=== PATIENT | female | born 1975 | race Caucasian/White ===

== ENCOUNTER 2016-10-04 23:10 | Inpatient (IN) | payer OTHER ==
[~2016-10-04] VITALS: Ht 160 cm; Wt 98.8 kg
[2016-10-04 23:16] VITALS: BP 139/79; PULSE 89; RESP 16; TEMP 98.6; O2SAT 100
[2016-10-04] MEDS ORDERED: NALOXONE HCL 0.4 MG/ML AMP IV PUSH ONE (23:30)
[2016-10-04] MEDS ORDERED: SODIUM CHLOR 0.9% 1000 ML INJ 1,000 ML IV ONE (23:30)
--- NOTE | 2016-10-04 23:39 | PD ---
HPI Chief Complaint: Psychiatric Symptoms Time Seen by Provider: 23:17 Travel History International Travel<30 days: No Contact w/Intl Traveler<30days: No Traveled to known affect area: No [facility] Past Medical History ?: Unknown Allergies-Medications (Allergen,Severity, Reaction): Coded Allergies: No Known Allergies (Unverified , 10/04/16) Data Data Last Documented VS Vital Signs Date Time Temp Pulse Resp B/P Pulse Ox O2 Delivery O2 Flow Rate FiO2 10/05/16 00:13 100 Nasal Cannula 2 10/04/16 23:16 98.6 89 16 139/79 Orders Complete Blood Count With Diff (10/04/16 23:22) Comprehensive Metabolic Panel (10/04/16 23:22) Tylenol (Acetaminophen) (10/04/16 23:22) Salicylates (Aspirin) (10/04/16 23:22) Electrocardiogram (10/04/16 ) Alcohol (Ethanol) (10/04/16 23:22) Drug Screen, Random Urine (10/04/16 23:22) Electrocardiogram (10/04/16 ) Urinalysis - C+S If Indicated (10/04/16 23:22) Oxygen Administration (10/04/16 23:24) Sodium Chlor 0.9% 1000 Ml Inj (Ns 1000 M (10/04/16 23:30) Naloxone Inj (Narcan Inj) (10/04/16 23:30) Ed Urine Pregnancytest Poc (10/04/16 23:26) Arterial Blood Gas (Abg) (10/04/16 ) Thyroid Stimulating Hormone (10/04/16 23:15) Psych Screen (10/05/16 01:50) Labs Laboratory Tests Test 10/04/16 10/04/16 10/04/16 23:15 23:40 23:45 White Blood Count 8.7 TH/MM3 Red Blood Count 4.43 MIL/MM3 Hemoglobin 10.2 GM/DL Hematocrit 33.2 % Mean Corpuscular Volume 74.9 FL Mean Corpuscular Hemoglobin 23.1 PG Mean Corpuscular Hemoglobin 30.9 % Concent Red Cell Distribution Width 16.4 % Platelet Count 345 TH/MM3 Mean Platelet Volume 8.2 FL Neutrophils (%) (Auto) 54.0 % Lymphocytes (%) (Auto) 34.9 % Monocytes (%) (Auto) 6.0 % Eosinophils (%) (Auto) 4.0 % Basophils (%) (Auto) 1.1 % Neutrophils # (Auto) 4.7 TH/MM3 Lymphocytes # (Auto) 3.0 TH/MM3 Monocytes # (Auto) 0.5 TH/MM3 Eosinophils # (Auto) 0.3 TH/MM3 Basophils # (Auto) 0.1 TH/MM3 CBC Comment DIFF FINAL Differential Comment Sodium Level 140 MEQ/L Potassium Level 3.8 MEQ/L Chloride Level 106 MEQ/L Carbon Dioxide Level 26.1 MEQ/L Anion Gap 8 MEQ/L Blood Urea Nitrogen 6 MG/DL Creatinine 0.71 MG/DL Estimat Glomerular Filtration 90 ML/MIN Rate Random Glucose 97 MG/DL Calcium Level 8.8 MG/DL Total Bilirubin 0.1 MG/DL Aspartate Amino Transf 20 U/L (AST/SGOT) Alanine Aminotransferase 34 U/L (ALT/SGPT) Alkaline Phosphatase 67 U/L Total Protein 7.3 GM/DL Albumin 3.5 GM/DL Thyroid Stimulating Hormone 3.150 uIU/ML 3rd Gen Salicylates Level LESS THAN 1.7 MG/DL Acetaminophen Level LESS THAN 2.0 MCG/ML Ethyl Alcohol Level 278 MG/DL Blood Gas Puncture Site RT FOOT Blood Gas Patient Temperature 98.6 Blood Gas HCO3 22 mmol/L Blood Gas Base Excess -2.9 mmol/L Blood Gas Oxygen Saturation 98 % Arterial Blood pH 7.32 Arterial Blood Partial 45 mmHg Pressure CO2 Arterial Blood Partial 318 mmHG Pressure O2 Arterial Blood Oxygen Content 14.7 Vol % Arterial Blood 1.5 % Carboxyhemoglobin Arterial Blood Methemoglobin 0.5 % Blood Gas Hemoglobin 10.1 G/DL Oxygen Delivery Device NONREB MASK Blood Gas Liter Flow 15 L/M Urine Color LIGHT-YELLOW Urine Turbidity CLEAR Urine pH 5.5 Urine Specific [place] 1.003 Urine Protein NEG mg/dL Urine Glucose (UA) NEG mg/dL Urine Ketones NEG mg/dL Urine Occult Blood NEG Urine Nitrite NEG Urine Bilirubin NEG Urine Urobilinogen LESS THAN 2.0 MG/DL Urine Leukocyte Esterase NEG Urine WBC LESS THAN 1 /hpf Urine Squamous Epithelial <1 /hpf Cells Urine Amorphous Sediment RARE Microscopic Urinalysis Comment CATH-CULT NOT IND Urine Opiates Screen NEG Urine Barbiturates Screen NEG Urine Amphetamines Screen NEG Urine Benzodiazepines Screen POS Urine Cocaine Screen NEG Urine Cannabinoids Screen NEG [facility] Medical Decision Making Interpretation(s) EKG , sinus rhythm LVH and nonspecific ST segment changes ABG shows pH 7.315 CO2 45.0-318 bicarbonate 22.3 Jan Nathan MD Oct 04, 2016 23:39
[2016-10-04 23:49] LABS: AUTOMATED NEUTROPHIL # 4.7 TH/MM3 (1.8-7.7); BASOPHIL # 0.1 TH/MM3 (0-0.2); BASOPHIL % 1.1 % (0.0-2.0); EOSINOPHIL # 0.3 TH/MM3 (0-0.4); HEMATOCRIT 33.2 % (35.0-46.0); HEMO FLAGS DIFF FINAL; LYMPH % 34.9 % (9.0-44.0); MEAN CELL VOLUME 74.9 FL (80.0-100.0); MEAN CORPUSCULAR HEMOGLOBIN 23.1 PG (27.0-34.0); MEAN CORPUSCULAR HGB CONC 30.9 % (32.0-36.0); PLATELET COUNT 345 TH/MM3 (150-450); RED BLOOD COUNT 4.43 MIL/MM3 (4.00-5.30); RED CELL DISTRIBUTION WIDTH 16.4 % (11.6-17.2); WHITE BLOOD COUNT 8.7 TH/MM3 (4.0-11.0)
[2016-10-04 23:58] LABS: ACETAMINOPHEN LESS THAN 2.0 MCG/ML (10.0-30.0); ALT (GPT) 34 U/L (10-53); ANION GAP 8 MEQ/L (5-15); AST (GOT) 20 U/L (15-37); BICARBONATE 26.1 MEQ/L (21.0-32.0); BLOOD UREA NITROGEN 6 MG/DL (7-18); CHLORIDE 106 MEQ/L (98-107); GLOMERULAR FILTRATION RATE 90 ML/MIN (>89); POTASSIUM 3.8 MEQ/L (3.5-5.1); SODIUM (NA) 140 MEQ/L (136-145)
[2016-10-05 00:07] LABS: ALKALINE PHOSPHATASE 67 U/L (45-117); TOTAL BILIRUBIN ADULT 0.1 MG/DL (0.2-1.0)
[2016-10-05 00:16] LABS: BLOOD, URINE NEG (NEG); GLUCOSE,URINE NEG (NEG); KETONE, URINE NEG (NEG); NITRITE,URINE NEG (NEG); PH, URINE 5.5 (5.0-8.5); SQUAMOUS EPITHELIAL CELL URINE <1 /hpf (0-5); URINE COLOR LIGHT-YELLOW (YELLW/STRAW)
[2016-10-05 00:17] LABS: COMMENT (UR) CATH-CULT NOT IND; CULTURE IF INDICATED CATH CULTURE NOT IND
[2016-10-05 00:19] LABS: AMPHETAMINE, URINE NEG (NEG); BARBITURATES, URINE NEG (NEG); COCAINE, URINE NEG (NEG)
[2016-10-05 00:20] LABS: BLOOD GAS BASE EXCESS -2.9 mmol/L (-2-2); BLOOD GAS CARBOXYHEMOGLOBIN 1.5 % (0-4); BLOOD GAS HCO3 22 mmol/L (22-26); BLOOD GAS METHEMOGLOBIN 0.5 % (0-2); BLOOD GAS O2 HGB SATURATION 98 % (90-100); BLOOD GAS OXYGEN CONTENT 14.7 Vol % (12.0-20.0); BLOOD GAS PCO2 45 mmHg (38-42); BLOOD GAS PO2 318 mmHG (61-120); BLOOD GAS TOTAL HGB 10.1 G/DL (12.0-16.0); TEMP CORR TO 98.6
[2016-10-05 00:21] LABS: CRITICAL VALUE NO; DRAW SITE RT FOOT; LITER FLOW 15 L/M; NUMBER OF ARTERIAL PUNCTURES 1; OXYGEN DEVICE NONREB MASK; STAT YES
[2016-10-05 05:52] VITALS: BP 121/68; PULSE 87; RESP 14; O2SAT 100
[2016-10-05 07:48] VITALS: BP 114/66; PULSE 87; RESP 20; O2SAT 97
[2016-10-05] MEDS ORDERED: ALBU6.7H INH (08:26)
[2016-10-05] MEDS ORDERED: ALPR.5 PO (08:26)
[2016-10-05] MEDS ORDERED: LIBRIUM PO (08:27)
--- NOTE | 2016-10-05 09:16 | EKG ---
Date Performed: 10/04/2016 Time Performed: 23:32:55 PTAGE: 41 years EKG: Sinus rhythm NORMAL ECG PREVIOUS TRACING : 10/04/2016 23.29 DOCTOR: Alton Salomon Interpretating Date/Time 10/05/2016 09:15:21
[2016-10-05 11:26] VITALS: BP 115/66; PULSE 94; RESP 18; O2SAT 96
[2016-10-05 14:08] VITALS: BP 96/51; PULSE 99; RESP 18; O2SAT 97
[2016-10-05 18:10] VITALS: BP 135/65; PULSE 95; RESP 18; O2SAT 96
--- NOTE | 2016-10-05 19:17 | PD ---
History of Present Illness Chief Complaint: Psychiatric Symptoms Time Seen by Provider: 18:30 Travel History International Travel<30 Days: No (unable to obtain ) Contact w/Intl Traveler<30days: No (unable to obtain ) Known affected area: No (unable to obtain ) Legal Status Legal Status: Vaughan Act Vaughan Act Signed By: Karli Vaughan Act Comment: OFFICER OJ MANCERA # [id number] History of Present Illness: HPI 41 year old female with history of anxiety disorder who presents under a BA after she sent messages to her daughter via text that she had taken # 90 Xanax and drank a bottle of wine. The messages were saying goodbye. She also stated that she was tired of living and didn't want to wake up". The patient was monitored in main Ed and then later in J pod. She slept most of the afternoon. Telephone call to her mother Estrella at [phone] with the patient 's verbal consent. Mother reports that Leela quit her job in [place] moved here a few weeks ago. She was having trouble with her adult children as well as having trouble with someone at work. Since she has been here she has been drinking most every day and has been stating that she does not want to live anymore . She has also been crying most days. The patient is seen in J pod. She is alert She is clinically sober. Angry affect. States " I want to go home". She is guarded with the information she presents and states " I had a bad night. A lot of things happening with my children". I was thinking my children would be better off without me". She is minimizing her overdose as well as minimizing her use of alcohol. She is not amenable to receiving treatment at this time. her BAL on admit was 278 and positive toxicology for benzos. PFSH Past Medical History ?: Unknown Psychiatric History Psychiatric History Hx Psychiatric Treatment: Has been treated in the past with Lexapro as well as Xanax History of Inpatient Treatment: No Guns or firearms in home: No Social History , unemployed female. Lives with her mother. Moved to [facility] a few weeks ago. Has 3 adult children Hx Alcohol Use: Yes (Minimizes) Hx Tobacco Use: No Hx Substance Use: Yes Substance Use Type: Alcohol, Benzos (Valium,Xanax) Hx of Substance Use Treatment: No Family Psychiatric History Daughter has attempted sucide x 2 Son has attempted suicide x 1. Allergies-Medications (Allergen,Severity, Reaction): Coded Allergies: No Known Allergies (Unverified , 10/04/16) Reported Meds & Prescriptions Reported Meds & Active Scripts Active Reported [Librium] Unknown Dose PO DAILY Proventil Hfa 6.7 GM Inh (Albuterol Sulfate) 90 Mcg/Act Aer 1 Puff INH Q4H PRN Xanax (Alprazolam) 0.5 Mg Tab 0.5 Mg PO TID PRN Review of Systems Except as stated in HPI: all other systems reviewed are Neg Exam Alert: Yes [place]: Person (ox4) Mood: Angry, Depressed Affect: Restricted Speech: Clear, Logical (does not initiate) Eye Contact: Normal Memory Intact: Comment (no impairmetn) Hallucinations: Other (negative) Delusions: No Suicidal: Intent (Does not contract for safety. ) Homicidal: Ideation (negative) Insight/Judgement Poor. Poor MDM Medical Decision Making Medical Record Reviewed: Yes Assessment/Plan 41 year old female under a BA after she took # 90 Xanax of 0.5 mg as well as took a bottle of wine. She had sent messages via text to her daughter telling her she did not want to live anymore. It is reported that the patient has ez crying as well as verbalizing to others that she does not want to live anymore. She has also been drinking on a daily basis. At this time the patient will remain on BA. for further observation, to maintain safety and to initiate treatment. She will be placed on CIIL protocol as a a cautionary since she has been drinking every day. Orders Complete Blood Count With Diff (10/04/16 23:22) Comprehensive Metabolic Panel (10/04/16 23:22) Tylenol (Acetaminophen) (10/04/16 23:22) Salicylates (Aspirin) (10/04/16 23:22) Alcohol (Ethanol) (10/04/16 23:22) Drug Screen, Random Urine (10/04/16 23:22) Electrocardiogram (10/04/16 ) Urinalysis - C+S If Indicated (10/04/16 23:22) Oxygen Administration (10/04/16 23:24) Sodium Chlor 0.9% 1000 Ml Inj (Ns 1000 M (10/04/16 23:30) Naloxone Inj (Narcan Inj) (10/04/16 23:30) Ed Urine Pregnancytest Poc (10/04/16 23:26) Arterial Blood Gas (Abg) (10/04/16 ) Thyroid Stimulating Hormone (10/04/16 23:15) Psych Screen (10/05/16 01:50) Diet Regular Basic (10/05/16 Lunch) Diet Regular Basic (10/05/16 Dinner) Results Vital Signs Date Time Temp Pulse Resp B/P Pulse Ox O2 Delivery O2 Flow Rate FiO2 10/05/16 18:10 95 18 135/65 96 Room Air 10/05/16 14:08 99 18 96/51 97 Room Air 10/05/16 11:26 94 18 115/66 96 Room Air 10/05/16 07:48 87 20 114/66 97 Room Air 10/05/16 05:52 87 14 121/68 100 Room Air 10/05/16 00:13 100 Nasal Cannula 2 10/04/16 23:16 98.6 89 16 139/79 100 Laboratory Tests Test 10/04/16 10/04/16 10/04/16 23:15 23:40 23:45 White Blood Count 8.7 Red Blood Count 4.43 Hemoglobin 10.2 Hematocrit 33.2 Mean Corpuscular Volume 74.9 Mean Corpuscular Hemoglobin 23.1 Mean Corpuscular Hemoglobin 30.9 Concent Red Cell Distribution Width 16.4 Platelet Count 345 Mean Platelet Volume 8.2 Neutrophils (%) (Auto) 54.0 Lymphocytes (%) (Auto) 34.9 Monocytes (%) (Auto) 6.0 Eosinophils (%) (Auto) 4.0 Basophils (%) (Auto) 1.1 Neutrophils # (Auto) 4.7 Lymphocytes # (Auto) 3.0 Monocytes # (Auto) 0.5 Eosinophils # (Auto) 0.3 Basophils # (Auto) 0.1 CBC Comment DIFF FINAL Differential Comment Sodium Level 140 Potassium Level 3.8 Chloride Level 106 Carbon Dioxide Level 26.1 Anion Gap 8 Blood Urea Nitrogen 6 Creatinine 0.71 Estimat Glomerular Filtration 90 Rate Random Glucose 97 Calcium Level 8.8 Total Bilirubin 0.1 Aspartate Amino Transf 20 (AST/SGOT) Alanine Aminotransferase 34 (ALT/SGPT) Alkaline Phosphatase 67 Total Protein 7.3 Albumin 3.5 Thyroid Stimulating Hormone 3.150 3rd Gen Salicylates Level LESS THAN 1.7 Acetaminophen Level LESS THAN 2.0 Ethyl Alcohol Level 278 Blood Gas Puncture Site RT FOOT Blood Gas Patient Temperature 98.6 Blood Gas HCO3 22 Blood Gas Base Excess -2.9 Blood Gas Oxygen Saturation 98 Arterial Blood pH 7.32 Arterial Blood Partial 45 Pressure CO2 Arterial Blood Partial 318 Pressure O2 Arterial Blood Oxygen Content 14.7 Arterial Blood 1.5 Carboxyhemoglobin Arterial Blood Methemoglobin 0.5 Blood Gas Hemoglobin 10.1 Oxygen Delivery Device NONREB MASK Blood Gas Liter Flow 15 Urine Color LIGHT-YELLOW Urine Turbidity CLEAR Urine pH 5.5 Urine Specific [place] 1.003 Urine Protein NEG Urine Glucose (UA) NEG Urine Ketones NEG Urine Occult Blood NEG Urine Nitrite NEG Urine Bilirubin NEG Urine Urobilinogen LESS THAN 2.0 Urine Leukocyte Esterase NEG Urine WBC LESS THAN 1 Urine Squamous Epithelial <1 Cells Urine Amorphous Sediment RARE Microscopic Urinalysis Comment CATH-CULT NOT IND Urine Opiates Screen NEG Urine Barbiturates Screen NEG Urine Amphetamines Screen NEG Urine Benzodiazepines Screen POS Urine Cocaine Screen NEG Urine Cannabinoids Screen NEG Diagnosis Primary Impression: Substance induced mood disorder Additional Impression: Adjustment disorder Admitting Information Admitting Physician Requests: Admit Problem Qualifiers Additional Impression: Adjustment disorder Qualified Code: F43.23 - Adjustment disorder with mixed anxiety and depressed mood Amy Seals [facility] Oct 05, 2016 19:17
[2016-10-05] MEDS ORDERED: ALUMINUM/MAGNESIUM/SIMETH 30 ML CUP PO PRN (19:30)
[2016-10-05] MEDS ORDERED: ACETAMINOPHEN 325 MG TAB PO PRN (19:30)
[2016-10-05] MEDS ORDERED: MAGNESIUM HYDROXIDE SUSP 30 ML CUP PO PRN (19:30)
[2016-10-05 21:30] VITALS: BP 127/100; PULSE 89; RESP 18; TEMP 97.7; O2SAT 98
[2016-10-06] MEDS ORDERED: LORazepam 2 MG/ML VIAL IV PUSH PRN ×4
[2016-10-06] MEDS ORDERED: FLUMAZENIL 0.5 MG/5 ML VIAL IV PUSH PRN
[2016-10-06] MEDS ORDERED: LORazepam 2 MG TAB PO PRN
[2016-10-06] MEDS ORDERED: LORazepam 1 MG TAB PO PRN
[2016-10-06 05:47] VITALS: BP 94/54; PULSE 72; RESP 18; TEMP 98
[2016-10-06 09:36] LABS: ANION GAP 7 MEQ/L (5-15); BICARBONATE 26.9 MEQ/L (21.0-32.0); BLOOD UREA NITROGEN 10 MG/DL (7-18); CHLORIDE 104 MEQ/L (98-107); GLOMERULAR FILTRATION RATE 83 ML/MIN (>89); POTASSIUM 3.8 MEQ/L (3.5-5.1); SODIUM (NA) 138 MEQ/L (136-145)
[2016-10-06 09:39] LABS: LDL CHOLESTEROL 81 MG/DL (0-99)
[2016-10-06 11:37] LABS: HEMOGLOBIN A1a 1.2 %; HEMOGLOBIN A1b 1.6 %; HEMOGLOBIN LA1C 1.9 %; HEMOGLOBIN P3 3.2 %
--- NOTE | 2016-10-06 11:44 | HHI.HP ---
Provisional Diagnosis Admission Date Oct 05, 2016 at 19:26 Ramsay I. 1. Adjustment disorder with disturbance of emotions and conduct 2. Alcohol dependence Rule out benzodiazepine use issues. Ramsay II. Deferred Ramsay V. GAF is 45 presently, decreased chiefly secondary to substance use Certification of Person's Competence To Provide Express and Informed Consent I have personally examined Leela Mcghee , a person being served at [facility] on, Oct 06, 2016 11:44. Express and informed consent means consent voluntarily given in writing, by a competent person, after sufficient explanation and disclosure of the subject matter involved to enable the person to make a knowing and willful decision without any element of force, fraud, deceit, duress, or other form of constraint or coercion. This person is 18 years of age or older, is not now known to be incompetent to consent to treatment with a guardian advocate, and does not have a health care surrogate or proxy currently making medical treatment decisions. I have found this person to be one of the following: [] Competent to provide express and informed consent, as defined above, for voluntary admission to this facility and is competent to provide express and informed consent for treatment. He/she has the consistent capacity to make well reasoned, willful, and knowing decisions concerning his or her medical or mental health treatment. The person fully and consistently understands the purpose of the admission for examination/placement and is fully capable of personally exercising all rights assured [place] [] Incompetent to provide express and informed consent to voluntary admission, and this is incompetent to provide express and informed consent to treatment. The person must be transferred to involuntary status and a petition for a guardian advocate filed with the Circuit Court. [x] Refusing to provide express and informed consent to voluntary admission but is competent to provide express and informed consent for treatment. The person must be discharged or transferred to involuntary status. Form shall be completed within 24 hours of a person's arrival at the receiving facility and filed in the clinical record of each person: 1. Admitted on a voluntary basis 2. Permitted to provide express and informed consent to his/her own treatment 3. Allowed to transfer from involuntary to voluntary status 4. Prior to permitting a person to consent to his or her own treatment after having been previously found incompetent to consent to treatment. History of Present Illness Capacity: Has Capacity HPI Ms. Mcghee is a 41-year-old female presently admitted under a Vaughan act following a benzodiazepine overdose in the setting of alcohol. Patient was evaluated by the psychiatric nurse practitioner in the ED who recommended admission to the inpatient psychiatric unit. Nurse practitioner obtained collateral from the patient's mother to the effect that the patient has been drinking heavily. Reviewing our electronic medical record, it appears this is the patient's first visit to [place]. Patient seen and examined with counselor and nurse. Chart reviewed. Case discussed with nursing staff. RN reports that patient's mother has called the unit, reiterating that the patient is a problem drinker. On my examination today, patient presents as somewhat oppositional and minimally cooperative. She insists that her presenting overdose occurred "because I had too much to drink and that's all." She maintains that she does not recall actually making the overdose, nor does she recall any of her associated behavior. She minimizes the extent of her substance use and says that she was drinking heavily only because it was the 04 of October. She denies any suicidal ideation now, saying that she wants to live for her mother and grandchildren. She denies any issues with low mood or elevated mood. She denies ever having experienced hallucinations. I can elicit no delusional material. The remainder of the psychiatric ROS is negative. Past psychiatric history: Patient admits only to a history of anxiety and says that the Xanax was prescribed for this indication by a psychiatrist in [place]. She has no psychiatric care in our area. She denies a history of psychiatric admissions or previous suicide attempts. Family history: The patient denies any family history of serious mental illness , substance use disorder or suicide. Chemical dependency history: The patient insists that she only drinks 2 glasses of wine a few times a week. She denies a history of blackouts. Denies any history of DUIs or other consequences from her drinking. No reported history of DTs or seizures. She denies any other substance use. In particular, she denies abusing her prescribed benzodiazepines. Her alcohol level on presentation here was 278 and her toxicology was positive for benzodiazepines. Social history: Patient reports that she came to [place] to care for her mother. 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 She has 3 children. She denies any or legal history. She denies any access to guns or firearms. No roman catholic or spiritual beliefs. Review of Systems ROS Limitations: Uncooperative Except as stated in HPI: all other systems reviewed are Neg Past Psych History Psychological trauma history Denies any history of abuse or other trauma. Violence risk - others (6 mos) Lower imminent risk, except as an unintentional consequence of substance use. No homicidal ideation. No known history of violence. Violence risk - self (6 mos) Likely a significant component of chronic risk related to substance use. She maintains that she does not recall her presenting ingestion and denies suicidal ideation now. She denies a history of suicide attempts in the past. Substance Abuse History Drugs/Alcohol past 12 months See above Past Family Social History Coded Allergies: No Known Allergies (Unverified , 10/04/16) Past Medical History Includes a history of asthma for which she uses an inhaler as needed. Reported Medications Albuterol 6.7 GM Inh (Proventil Hfa 6.7 GM Inh)90 Mcg/Act Aer1 Puff INH Q4H PRN (SHORTNESS OF BREATH) #1 INHALER Ref 0 10/05/16 Alprazolam (Xanax)0.5 Mg Tab0.5 Mg PO TID PRN (ANXIETY) Ref 0 10/05/16 Discontinued Reported Medications [Librium] No Conflict CheckUnknown Dose PO DAILY 10/05/16 Current Medications Medications (Trade) Dose Ordered Sig/Johnna Route Start Time Stop Time Status Last Admin (Tylenol) 650 mg Q4H PRN PO 10/05/16 19:30 (Milk Of Magnesia Liq) 30 ml DAILY PRN PO 10/05/16 19:30 (Mag-Al Plus Susp Liq) 30 ml Q6H PRN PO 10/05/16 19:30 10/05/16 22:19 (Ativan) 1 mg Q4H PRN PO 10/06/16 00:00 (Ativan Inj) 1 mg Q4H PRN IV PUSH 10/06/16 00:00 (Ativan) 2 mg Q2H PRN PO 10/06/16 00:00 (Ativan Inj) 2 mg Q2H PRN IV PUSH 10/06/16 00:00 (Ativan Inj) 2 mg Q1H PRN IV PUSH 10/06/16 00:00 (Ativan Inj) 2 mg Q15M PRN IV PUSH 10/06/16 00:00 (Romazicon Inj) 0.2 mg Q1M PRN IV PUSH 10/06/16 00:00 Family History See above Social History See above Patient's Strengths (min. 2) In a monitored setting. Verbally fluent. Physical Exam Physical examination completed by ED provider. On my examination today, the patient appears to be in no acute physical distress. No hand tremor, no diaphoresis, no other signs of alcohol withdrawal noted. No other motoric abnormalities noted. Laboratories and vitals signs reviewed: Vital Signs Vital Signs Date Time Temp Pulse Resp B/P Pulse Ox O2 Delivery O2 Flow Rate FiO2 10/06/16 05:47 98.0 72 18 94/54 10/05/16 21:30 98 10/05/16 18:10 Room Air 10/05/16 00:13 2 Lab Results Item Value Date Time White Blood Count 8.7 TH/MM3 10/04/162314 Hemoglobin 10.2 GM/DL L 10/04/162314 Platelet Count 345 TH/MM3 10/04/162314 Sodium Level 138 MEQ/L 10/06/16 0753 Potassium Level 3.8 MEQ/L 10/06/16 0753 Chloride Level 104 MEQ/L 10/06/16 0753 Carbon Dioxide Level 26.9 MEQ/L 10/06/16 075 Blood Urea Nitrogen 10 MG/DL 10/06/16 0753 Creatinine 0.76 MG/DL 10/06/16 075 Hemoglobin A1c 5.5 % 10/06/16 0753 Aspartate Amino Transf (AST/SGOT) 20 U/L 10/04/162314 Alanine Aminotransferase (ALT/SGPT) 34 U/L 10/04/162314 Alkaline Phosphatase 67 U/L 10/04/162314 Thyroid Stimulating Hormone 3rd Gen 3.150 uIU/ML 10/04/162314 Urine Benzodiazepines Screen POS H 10/04/162344 Ethyl Alcohol Level 278 MG/DL H 10/04/162314 ED POC preg neg. Mental Status Examination Patient is in hospital gown. She is somewhat disheveled but maintaining basic hygiene. She is awake and alert and oriented to person and hospital at least. No evidence of delirium. No motor abnormalities noted. Speech is within normal limits for rate, tone and volume. Language and fund of knowledge seem average. Focusing concentration fair. Memory grossly intact on clinical exam. Patient denies issues with mood although affect is somewhat restricted and dysphoric. Thought process linear. No loosening of associations. No evident delusional material. Denies audiovisual hallucinations. Denies suicidal or homicidal ideation. Insight and judgment seem poor. Assessment & Plan Problem List: (1) Adjustment disorder ICD Code: F43.20 (2) Alcohol dependence ICD Code: F10.20 Assessment & Plan This is a 41-year-old female with psychiatric history as detailed above who is presently admitted under a Vaughan act following a benzodiazepine overdose in the setting of alcohol. Patient minimizes the circumstances of her presenting overdose and likewise minimizes the impact of her alcohol use. Mother has spoken with staff on more than one occasion expressing concerns about the patient's pattern of alcohol use. The patient is presently denying the psychiatric ROS and is quite discharge focused. It seems to me that her greatest ongoing risk factor for self-harm is the alcohol use, and so I think it is most prudent at this juncture to place the patient under a physician's certificate for transfer to [facility] for further assessment and management of the chemical dependency issues. Admit inpatient. Initiate physician's certificate for emergency admission to addiction receiving facility. speech pathologist assistant has already called over to [facility]; no beds today. Check CBC, Iron studies in morning given microcytic anemia. Continue CIWA with Ativan for withdrawal. Add thiamine/folate. Seizure/fall precautions. Vitals every shift. Counselor to see. Disposition planning. Estimated length of stay: 2-3 days Discharge Planning Transfer to [facility] under [facility] once a bed is available. Request HC Surrog/Guard Advoc?: No Problem Qualifiers (1) Adjustment disorder: Qualified Code: F43.25 - Adjustment disorder with mixed disturbance of emotions and conduct (2) Alcohol dependence: Qualified Code: F10.20 - Uncomplicated alcohol dependence Dariusz Talavera MD Oct 06, 2016 11:44
[2016-10-06 15:56] VITALS: BP 125/58; PULSE 82; RESP 18; TEMP 98; O2SAT 98
[2016-10-07 06:40] VITALS: BP 123/56; PULSE 68; RESP 18; TEMP 97.7; O2SAT 97
[2016-10-07] MEDS ORDERED: FOLIC ACID 1 MG TAB PO SCH (09:00)
[2016-10-07] MEDS ORDERED: THIAMINE HCL 100 MG TAB PO SCH (09:00)
[2016-10-07 09:44] LABS: AUTOMATED NEUTROPHIL # 4.1 TH/MM3 (1.8-7.7); BASOPHIL # 0.1 TH/MM3 (0-0.2); EOSINOPHIL # 0.4 TH/MM3 (0-0.4); EOSINOPHIL % 5.2 % (0.0-4.0); HEMATOCRIT 32.8 % (35.0-46.0); HEMO FLAGS DIFF FINAL; LYMPHOCYTE # 1.8 TH/MM3 (1.0-4.8); MEAN CELL VOLUME 75.8 FL (80.0-100.0); MEAN CORPUSCULAR HGB CONC 30.3 % (32.0-36.0); MONO % 6.6 % (0.0-8.0); NEUT % 60.2 % (16.0-70.0); PLATELET COUNT 287 TH/MM3 (150-450); RED BLOOD COUNT 4.33 MIL/MM3 (4.00-5.30); RED CELL DISTRIBUTION WIDTH 16.4 % (11.6-17.2); WHITE BLOOD COUNT 6.9 TH/MM3 (4.0-11.0)
[2016-10-07 10:13] LABS: FERRITIN 8 NG/ML (8-252); TRANSFERRIN IRON PROFILE 326 MG/DL (200-360)
[2016-10-07] MEDS ORDERED: FERR324T4 PO (11:47)
[2016-10-07] MEDS ORDERED: GNP100TA3 PO (11:47)
[2016-10-07] MEDS ORDERED: FOLI1TAB6 PO (11:47)
--- NOTE | 2016-10-07 11:47 | HHI.DS ---
Psychiatry Discharge Summary Inpatient Psychiatric care?: Yes Advance Directive: No Reason Not Provided: no wanted Mental Health AdvanceDirective: No Health Care Proxy: No Admission Admission Date Oct 05, 2016 at 19:26 Admission Diagnosis: (1) Adjustment disorder ICD Code: F43.20 (2) Alcohol dependence ICD Code: F10.20 Brief History Ms. Mcghee is a 41-year-old female presently admitted under a Vaughan act following a benzodiazepine overdose in the setting of alcohol. Patient was evaluated by the psychiatric nurse practitioner in the ED who recommended admission to the inpatient psychiatric unit. Nurse practitioner obtained collateral from the patient's mother to the effect that the patient has been drinking heavily. Reviewing our electronic medical record, it appears this is the patient's first visit to [facility]. Patient seen and examined with counselor and nurse. Chart reviewed. Case discussed with nursing staff. RN reports that patient's mother has called the unit, reiterating that the patient is a problem drinker. On my examination today, patient presents as somewhat oppositional and minimally cooperative. She insists that her presenting overdose occurred "because I had too much to drink and that's all." She maintains that she does not recall actually making the overdose, nor does she recall any of her associated behavior. She minimizes the extent of her substance use and says that she was drinking heavily only because it was the 04 of October. She denies any suicidal ideation now, saying that she wants to live for her mother and grandchildren. She denies any issues with low mood or elevated mood. She denies ever having experienced hallucinations. I can elicit no delusional material. The remainder of the psychiatric ROS is negative. Past psychiatric history: Patient admits only to a history of anxiety and says that the Xanax was prescribed for this indication by a psychiatrist in [place]. She has no psychiatric care in our area. She denies a history of psychiatric admissions or previous suicide attempts. Family history: The patient denies any family history of serious mental illness , substance use disorder or suicide. Chemical dependency history: The patient insists that she only drinks 2 glasses of wine a few times a week. She denies a history of blackouts. Denies any history of DUIs or other consequences from her drinking. No reported history of DTs or seizures. She denies any other substance use. In particular, she denies abusing her prescribed benzodiazepines. Her alcohol level on presentation here was 278 and her toxicology was positive for benzodiazepines. Social history: Patient reports that she came to [place] to care for her mother. 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 She has 3 children. She denies any or legal history. She denies any access to guns or firearms. No latter day or spiritual beliefs. Tobacco Use In Past 30 Days: No Tobacco Past 30 Days Alcohol Use: 2-3 Times Per Week Hospital Course Patient was admitted to a locked, inpatient psychiatric unit. Appropriate precautions were in place throughout patient's hospital stay. Patient was seen and examined daily on the unit by psychiatry and also visited by counselor. No scheduled psychotropic medications were initiated during this hospital stay. There is no evidence of any suicidality or homicidality on the inpatient unit. There was no evidence of clinically significant withdrawal. The patient was placed under a physician's certificate for emergency admission to [facility], but they unfortunately failed to accept the patient despite our repeated attempts to get them to help the patient. On the day of discharge: Patient seen and examined with nurse. Chart reviewed. Case discussed with nursing staff. The patient has not been any behavioral problem overnight. On my examination today, the patient denies any suicidal or homicidal ideation, intent or plan. She denies any issues with mood, nor can I elicit any depressive or hypomanic/manic symptoms. She denies any audiovisual hallucinations and I can elicit no delusional material. She continues to minimize the circumstances of her presentation here and continues to minimize her alcohol use. Weighing the relevant factors and based on the available evidence, I us administrative law judge that the patient does not presently meet criteria for involuntary psychiatric hospitalization as she does not represent an imminent risk of harm to self or others as a consequence of a mental illness as defined under the Vaughan act, nor is there any evidence of significant functional impairment from such an illness. I have recommended that she remain voluntarily to allow us to transfer her for chemical dependency evaluation and treatment, but she has declined. Given that her Vaughan act will today, I have no choice but to order her discharge and will do so AGAINST MEDICAL ADVICE. I explained to the patient that she is leaving AGAINST MEDICAL ADVICE and she understands this. Patient will be discharged home today with psychiatric follow-up as arranged by counselor. Patient is also to follow-up with primary care. I have counseled the patient to abstain from substances of abuse including alcohol. I counseled the patient regarding warning signs for need to return to the psychiatric emergency room as part of the general safety plan. Results Blood Pressure 123 / 56 Vital Signs Date Time Temp Pulse Resp B/P Pulse Ox O2 Delivery O2 Flow Rate FiO2 10/07/16 06:40 97.7 68 18 123/56 97 10/05/16 18:10 Room Air 10/05/16 00:13 2 Laboratory Tests Test 10/04/16 10/04/16 10/04/16 10/06/16 23:15 23:40 23:45 07:53 Hemoglobin 10.2 GM/DL (11.6-15.3) Hematocrit 33.2 % (35.0-46.0) Mean Corpuscular Volume 74.9 FL (80.0-100.0) Mean Corpuscular Hemoglobin 23.1 PG (27.0-34.0) Mean Corpuscular Hemoglobin 30.9 % Concent (32.0-36.0) Blood Urea Nitrogen 6 MG/DL (7-18) Total Bilirubin 0.1 MG/DL (0.2-1.0) Salicylates Level LESS THAN 1.7 MG/DL (2.8-20.0) Acetaminophen Level LESS THAN 2.0 MCG/ML (10.0-30.0) Ethyl Alcohol Level 278 MG/DL (0-5) Blood Gas Base Excess -2.9 mmol/L (-2-2) Arterial Blood pH 7.32 (7.380-7.420) Arterial Blood Partial 45 mmHg (38-42) Pressure CO2 Arterial Blood Partial 318 mmHG Pressure O2 (61-120) Blood Gas Hemoglobin 10.1 G/DL (12.0-16.0) Urine Benzodiazepines Screen POS (NEG) Estimat Glomerular Filtration 83 ML/MIN (>89) Rate Calcium Level 8.4 MG/DL (8.5-10.1) Triglycerides Level 266 MG/DL (42-150) Test 10/07/16 07:31 Hemoglobin 9.9 GM/DL (11.6-15.3) Hematocrit 32.8 % (35.0-46.0) Mean Corpuscular Volume 75.8 FL (80.0-100.0) Mean Corpuscular Hemoglobin 23.0 PG (27.0-34.0) Mean Corpuscular Hemoglobin 30.3 % Concent (32.0-36.0) Eosinophils (%) (Auto) 5.2 % (0.0-4.0) Iron Level 27 MCG/DL (50-170) Total Iron Binding Capacity 456 MCG/DL (250-450) Percent Iron Saturation 5.9 % (20-50) Laboratory Results Test 10/06/16 07:53 Hemoglobin A1c 5.5 % (4.3-6.0) Triglycerides Level 266 MG/DL (42-150) Cholesterol Level 175 MG/DL (120-200) LDL Cholesterol 81 MG/DL (0-99) HDL Cholesterol 41.0 MG/DL (40.0-60.0) Summary of Major Lab Results Anemia stable. Iron studies not inconsistent with iron deficiency anemia; I will start iron supplement on discharge. Summary of Procedures None done Imaging None done Pending results at discharge: No Medications # of Antipsychotic meds at D/C: 0 Approp Antipsych med options 1 - Minimum of three failed multiple trials of monotherapy. 2 - Documented plan to taper to monotherapy due to previous use of multiple meds OR cross-taper in progress at D/C. 3 - Documentation of augmentation of Clozapine. 4 - Justification other than those listed in allowable values 1-3, document here : Discharge Discharge Date: Oct 07, 2016 Discharge Diagnosis: (1) Adjustment disorder Diagnosis: Principal (resolved) ICD Code: F43.20 (2) Alcohol dependence Diagnosis: Secondary ICD Code: F10.20 Mental Status Exam at Disch Patient is in hospital gown. She is fairly well groomed. She is awake and alert and oriented to person and hospital at least. No evidence of delirium. No motor abnormalities noted. No signs of withdrawal noted. Speech is within normal limits for rate, tone and volume. Language and fund of knowledge seem average. Focus and concentration intact. Mood fair and affect fairly full and reactive, if a little sarcastic. Thought process linear. No loosening of associations. No evident delusional material. Denies audiovisual hallucinations. Denies suicidal or homicidal ideation, intent or plan. Insight and judgment are poor. Pt Condition on Discharge: Guarded (AGAINST MEDICAL ADVICE discharge) Discharge Disposition: Discharge Home Discharge Instructions Diet Instructions: As Tolerated, No Restrictions Activities you can perform: Weight Bearing as Anuradha Scheduled Appointment: as per counselor's notes New Orders: CBC WITH DIFF - 2 Weeks New Medications: Ferrous Sulfate DR (Ferrous Sulfate DR) 324 Mg Tabdr 324 MG PO DAILY Nutritional Supplement #30 Ref 0 TAB Folic Acid (Folic Acid) 1 Mg Tablet 1 MG PO DAILY Nutritional Supplement Days 30 Ref 0 TAB Thiamine HCl (Gnp Vitamin B-1) 100 Mg Tab 100 MG PO DAILY Nutritional Supplement Days 30 Ref 0 TAB Continued Medications: Albuterol 6.7 GM Inh (Proventil Hfa 6.7 GM Inh) 90 Mcg/Act Aer 1 PUFF INH Q4H PRN SHORTNESS OF BREATH #1 Ref 0 INHALER Discontinued Medications: Alprazolam (Xanax) 0.5 Mg Tab 0.5 MG PO TID PRN ANXIETY Ref 0 TAB Discharge Time <= 30 minutes Discharge/Advance Care Plan Health Problems: (1) Adjustment disorder (2) Alcohol dependence Goals to promote your health * To prevent worsening of your condition and complications * To maintain your health at the optimal level Directions to meet your goals Take your medications as prescribed Follow your dietary instruction Follow activity as directed Keep your appointments as scheduled Take your immunizations and boosters as scheduled If your symptoms worsen call your PCP, if no PCP go to Urgent Care Center or Emergency Room For 24/10 questions related to your inpatient stay or results of tests pending at discharge, please contact Dr. Dariusz Talavera at Smoking is Dangerous to Your Health. Avoid second hand smoking Problem Qualifiers (1) Adjustment disorder: Qualified Code: F43.25 - Adjustment disorder with mixed disturbance of emotions and conduct (2) Alcohol dependence: Qualified Code: F10.20 - Uncomplicated alcohol dependence Dariusz Talavera MD Oct 07, 2016 11:47
== END 2016-10-07 15:10 | disposition left against medical advice (07) | DRG 882 ==
LOC: NEPD 23:10 → NEDA 10-05 19:26 → H260 10-05 21:31
PROVIDERS: ADMIT Psychiatry & Neurology Psychiatry; ATTEND Psychiatry & Neurology Psychiatry
DX: F43.23 Adjustment disorder with mixed anxiety and depressed mood (principal); F10.20 Alcohol dependence, uncomplicated; J45.909 Unspecified asthma, uncomplicated; T42.4X2A Poisoning by benzodiazepines, intentional self-harm, initial encounter; Y92.009 Unspecified place in unspecified non-institutional (private) residence as the place of occurrence of the external cause; T51.0X2A Toxic effect of ethanol, intentional self-harm, initial encounter
CPT/HCPCS: 36600; 80048; 80053; 80061; 80307; 81001; 82728; 82805; 83036; 83540; 83550; 84443; 84703; 85025; 93005; 96361; 96374; J2310; J7030

== ENCOUNTER 2016-12-12 14:29 | Emergency (ER) | payer SELFPAY ==
[~2016-12-12] VITALS: Ht 160 cm; Wt 90.0 kg
[~2016-12-12 14:29] MED LIST: ALBU6.7H INH; FERR324T4 PO; FOLI1TAB6 PO; GNP100TA3 PO
[2016-12-12 14:30] VITALS: BP 163/76; PULSE 101; RESP 16; TEMP 99; O2SAT 99
[2016-12-12] MEDS ORDERED: CEPH-460 PO (15:19)
[2016-12-12] MEDS ORDERED: BACT800T5 PO (15:19)
--- NOTE | 2016-12-12 15:21 | PD ---
HPI Chief Complaint: Skin Problem Time Seen by Provider: 15:17 Travel History International Travel<30 days: No Contact w/Intl Traveler<30days: No Traveled to known affect area: No History of Present Illness HPI 41-year-old female presents to emergency Department with complaint of pain, redness, swelling to her right buttock 4 days. Denies fever, vomiting. Denies drainage from the area. Denies history of abscesses. Has been doing warm compresses and taking Tylenol for symptom management. Symptoms are moderate in severity. No known allergies. Has no other medical complaints. No other modifying factors or associated signs and symptoms. PFSH Past Medical History Asthma: Yes Depression: Yes Cancer: No Cardiovascular Problems: No Cerebrovascular Accident: No Diabetes: No Diminished Hearing: No Endocrine: No Genitourinary: No Headaches: No Immune Disorder: No Musculoskeletal: No Neurologic: No Psychiatric: No Reproductive: No Migraines: No Seizures: No Tetanus Vaccination: < 5 Years Influenza Vaccination: No ?: Not LMP: 12/02/16 Past Surgical History Section: Yes (X1) Gynecologic Surgery: Yes () Social History Alcohol Use: Yes (Minimizes) Tobacco Use: No Substance Use: No Allergies-Medications (Allergen,Severity, Reaction): Coded Allergies: No Known Allergies (Unverified , 10/04/16) Reported Meds & Prescriptions Reported Meds & Active Scripts Active Keflex (Cephalexin) 500 Mg Cap 500 Mg PO Q6H 10 Days Bactrim DS (Sulfamethoxazole-Trimethoprim) 800-160 Mg Tab 1 Tab PO BID [address] (Ferrous Sulfate) 324 Mg Tabdr 324 Mg PO DAILY Gnp Vitamin B-1 (Thiamine HCl) 100 Mg Tab 100 Mg PO DAILY 30 Days Folic Acid 1 Mg Tablet 1 Mg PO DAILY 30 Days Reported Proventil Hfa 6.7 GM Inh (Albuterol Sulfate) 90 Mcg/Act Aer 1 Puff INH Q4H PRN Review of Systems Except as stated in HPI: all other systems reviewed are Neg Physical Exam Narrative GENERAL: Well-nourished, well-developed female patient, in no acute distress; afebrile, nontoxic-appearing SKIN: There is an indurated area to the right buttock which measures about 2 cm in diameter. It is fluctuant and there is pointing but no drainage. There is a zone of inflammation around it but no lymphangitis. HEAD: Atraumatic. Normocephalic. EYES: Pupils equal and round. No scleral icterus. No injection or drainage. ENT: Mucosa pink and moist. Airway patent. NECK: Trachea midline. CARDIOVASCULAR: Regular rate. RESPIRATORY: No accessory muscle use. GASTROINTESTINAL: Obese. MUSCULOSKELETAL: No obvious deformities. No clubbing. No cyanosis. No edema. NEUROLOGICAL: Awake and alert. Oriented 3. No obvious cranial nerve deficits. Motor grossly within normal limits. Normal speech. PSYCHIATRIC: Appropriate mood and affect; insight and judgment normal. Data Data Last Documented VS Vital Signs Date Time Temp Pulse Resp B/P (MAP) Pulse Ox O2 Delivery O2 Flow Rate FiO2 12/12/16 17:11 12/12/16 14:30 99.0 101 16 99 Orders Orders Lidocaine 1% Inj (50 Ml) (Xylocaine 1% I (12/12/16 15:30) Acetamin-Hydrocod 325-5 Mg ([place] 5-325 (12/12/16 15:30) Sulfamet-Trimeth Ds 800-160 Mg (Bactrim (12/12/16 15:30) Cephalexin (Keflex) (12/12/16 15:30) Wound Culture And Gram Stain (12/12/16 16:47) [facility] Medical Decision Making Medical Screen Exam Complete: Yes Emergency Medical Condition: Yes Medical Record Reviewed: Yes Differential Diagnosis Abscess, cellulitis, folliculitis Narrative Course 41-year-old female physical exam consistent with an abscess to the right buttocks. Patient is afebrile and nontoxic-appearing. She denies fever, vomiting. See my procedure note for incision and drainage of abscess. Wound culture pending. Lortab, Keflex, Bactrim administered in the ER. Keflex, Bactrim prescribed for home. Instructed patient to return to the emergency department or follow-up with primary care provider in 48 hours for packing removal. Instructed patient to follow up with primary care provider. Patient verbalizes understanding and agreement with treatment plan. Patient is medically cleared and stable for discharge. Discussed reasons to return to the emergency department. Patient agrees with treatment plan. The patients vital signs are stable and the patient is stable for outpatient follow-up and treatment. Patient discharged home, stable and in no acute distress. Procedures Procedure Narrative INCISION AND DRAINAGE OF ABSCESS: The area was prepped and was sterilely draped. A subcutaneous wheal of 1 % Xylocaine with a total number 2mL was used to anesthetize the area properly. A number 11 scalpel was used to make a 1-cm incision across the area of the abscess. The abscess was drained, complex loculations were broken down, and irrigated with normal saline. Cultures were obtained. Quarter inch iodoform packing was placed in the wound. Sterile dressing applied. Patient advised to have packing removed in two days. Diagnosis Primary Impression: Abscess of right buttock Referrals: Primary Care Physician Patient Instructions: Abscess (ED), Abscess Follow-up (ED), Abscess Incision and Drainage (DC), General Instructions Additional Instructions: Complete full course of antibiotics Warm compresses to the affected area Keep area clean and dry Ibuprofen or Tylenol as directed and as needed for pain and inflammation Return to the emergency department or follow-up with primary care provider in 48 hours for abscess packing removal Follow-up with primary care provider Return to emergency department immediately with worsening of symptoms Med/Other Pt SpecificInfo: Prescription(s) given Scripts Cephalexin (Keflex) 500 Mg Cap 500 MG PO Q6H for Infection for 10 Days, CAP 0 Refills Prov: Shirlene Lehman 12/12/16 Sulfamethoxazole-Trimethoprim (Bactrim DS) 800-160 Mg Tab 1 TAB PO BID for Infection for 10 Days, TAB 0 Refills Prov: Shirlene Lehman 12/12/16 Disposition: 01 DISCHARGE HOME Condition: Stable Shirlene Lehman Dec 12, 2016 15:21
[2016-12-12] MEDS ORDERED: SULFAMETHOXAZOLE-TRIMETHOPRIM DS 800-160 MG TAB PO ONE (15:30)
[2016-12-12] MEDS ORDERED: LIDOCAINE HCL 1% 50 ML VIAL INFIL ONE (15:30)
[2016-12-12] MEDS ORDERED: ACETAMINOPHEN/HYDROcodone 325 MG/5 MG TAB PO ONE (15:30)
[2016-12-12] MEDS ORDERED: CEPHALEXIN MONOHYDRATE 500 MG CAP PO ONE (15:30)
== END 2016-12-12 17:14 | disposition home or self-care (01) ==
LOC: NEPD 14:29
DX: L02.31 Cutaneous abscess of buttock (principal); A49.02 Methicillin resistant Staphylococcus aureus infection, unspecified site; J45.909 Unspecified asthma, uncomplicated; F32.9 Major depressive disorder, single episode, unspecified
CPT/HCPCS: 10061; 86403; 87070; 87186; 87205